=== PATIENT | female | born 1995 | race African-American/Black ===

== ENCOUNTER 2017-09-22 15:22 | Emergency (ER) | payer OTHER ==
[2017-09-22 15:31] VITALS: BP 131/82
[2017-09-22] MEDS ORDERED: IBUPROFEN 800 MG TABLET PO ONE (16:14)
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
== END 2017-09-22 16:21 | disposition home or self-care (01) ==
LOC: ER 15:22
DX: S30.0XXA Contusion of lower back and pelvis, initial encounter (principal); M54.6 Pain in thoracic spine; M54.5 Low back pain; M79.1 Myalgia; R51 Headache; F17.210 Nicotine dependence, cigarettes, uncomplicated; V89.2XXA Person injured in unspecified motor-vehicle accident, traffic, initial encounter
CPT/HCPCS: 99283

== ENCOUNTER 2019-03-29 11:04 | Emergency (ER) | payer SELFPAY ==
--- NOTE | 2019-03-29 11:17 | ER Document Report ---
ED Medical Screen (RME) - General Chief Complaint: Abscess Stated Complaint: POSSIBLE CYST Time Seen by Provider: 03/29/19 11:13 Mode of Arrival: Ambulatory Information source: Patient Notes: Patient presents to the emergency department with abscess to her left axilla. Patient reports for the past week. She reports she sometimes gets them after her menstrual cycle and when she shaves. She denies history of MRSA. Reports she is been here before to have him lanced in the past x1. No other symptoms such as fever vomiting diarrhea. I have greeted and performed a rapid initial assessment of this patient. A comprehensive ED assessment and evaluation of the patient, analysis of test results and completion of the medical decision making process will be conducted by additional ED providers. Dictation of this chart was performed using voice recognition software; therefore, there may be some unintended grammatical errors. TRAVEL OUTSIDE OF THE [place] IN LAST 30 DAYS: No - Related Data Allergies/Adverse Reactions: No Known Allergies Allergy (Unverified 11/21/14 18:16) Past Medical History Renal/ Medical History: Denies: Hx Peritoneal Dialysis Physical Exam - Vital signs Vitals: Temp Pulse Resp BP Pulse Ox 99.4 F 106 H 18 121/71 99 03/29/19 11:10 03/29/19 11:10 03/29/19 11:10 03/29/19 11:10 03/29/19 11:10 Course - Vital Signs Vital signs: Temp Pulse Resp BP Pulse Ox 99.4 F 106 H 18 121/71 99 03/29/19 11:10 03/29/19 11:10 03/29/19 11:10 03/29/19 11:10 03/29/19 11:10
[2019-03-29] MEDS ORDERED: LIDOCAINE 1% INJ-PF (10 MG/ML) 30 ML SDV INJ ONE (12:43)
[2019-03-29] MEDS ORDERED: ONDANSETRON 4 MG TAB.RAPDIS PO ONE (12:43)
[2019-03-29] MEDS ORDERED: OXYCODONE-ACETAMINOPHEN 5-325 MG TABLET PO ONE (12:43)
[2019-03-29] MEDS ORDERED: DOXYCYCLINE HYCLATE 100 MG TABLET PO ONE (14:24)
[2019-03-29] MEDS ORDERED: HYDROCODONE/ACETAMINOPHEN 5-325 MG (6 TAB/ER DISP) PO PRN (14:34)
--- NOTE | 2019-03-29 14:34 | ER Document Report ---
ED General - General Chief Complaint: Abscess Stated Complaint: POSSIBLE CYST Time Seen by Provider: 03/29/19 11:13 Mode of Arrival: Ambulatory TRAVEL OUTSIDE OF THE [place] IN LAST 30 DAYS: No - HPI Notes: Patient is a 23-year-old female who presents emergency department for evaluation of an abscess in the left axilla. She states she gets it whenever she shaves her underarms. She states she has never had a history of MRSA. She denies any fevers or chills. No nausea or vomiting. She has pain that is worsened by movement of the arm. Nothing seems to make it better. She has never consulted with a surgeon, has no insurance at this time. - Related Data Allergies/Adverse Reactions: No Known Allergies Allergy (Unverified 11/21/14 18:16) Past Medical History - General Information source: Patient - Social History Smoking Status: Never Smoker Drug Abuse: None Family History: Arthritis, CAD, CVA, DM, Hyperlipidemia, Hypertension. denies: COPD, Malignancy, Thyroid Disfunction Patient has suicidal ideation: No Patient has homicidal ideation: No Renal/ Medical History: Denies: Hx Peritoneal Dialysis Skin Medical History: Reports Other - Multiple abscesses Review of Systems - Review of Systems Constitutional: No symptoms reported EENT: No symptoms reported Cardiovascular: No symptoms reported Respiratory: No symptoms reported Gastrointestinal: No symptoms reported Female Genitourinary: No symptoms reported Musculoskeletal: No symptoms reported Skin: See HPI Neurological/Psychological: No symptoms reported Physical Exam - Vital signs Vitals: Temp Pulse Resp BP Pulse Ox 99.4 F 106 H 18 121/71 99 03/29/19 11:10 03/29/19 11:10 03/29/19 11:10 03/29/19 11:10 03/29/19 11:10 - Notes Notes: 23-year-old female who appears her stated age in no acute distress. Head is normocephalic and atraumatic. Pupils are equal round, reactive to light. Oral mucosa is moist. Heart is regular rate and rhythm, lungs clear station bilaterally. Examination of left axilla yields an approximate 6 cm indurated area with a 2 cm central area that is fluctuant. No surrounding lymphadenopathy that I am able to palpate. Otherwise skin is warm and dry. Patient is awake and alert, cooperative with examiner, no focal deficits neurologically. Course - Re-evaluation Re-evalutation: 03/29/19 14:31 Patient presents emergency department for evaluation. Decision was made to incise and drain this abscess. Questions were sought and answered. The procedure was explained in great detail. The patient tolerated it well. I did obtain cultures. She has no old wound cultures here. I did, given the extent of the purulence that was obtained, decide to start the patient on antibiotics. [facility] will refer [facility] to [facility] as she does not currently have insurance. She is given post I&D instructions, is told to return to the ED with worsening or new concerning symptoms of any sort. - Vital Signs Vital signs: Temp Pulse Resp BP Pulse Ox 99.4 F 106 H 18 121/71 99 03/29/19 11:10 03/29/19 11:10 03/29/19 11:10 03/29/19 11:10 03/29/19 11:10 Procedures - Incision and Drainage Left Arm Time completed: 14:01 Type: Simple Anesthetic type: 1% Lidocaine mL's of anesthetic: 4 Blade size: 11 I&D procedure: Betadine prep applied Incision Method: Incision made by scalpel Amount/type of drainage: Proximal only 25 cc of foul smelling purulent drainage Notes: 03/29/19 14:33 The area was prepped and draped in usual sterile fashion. It was anesthetized with approximately 4 mL's of 1% lidocaine. Once adequate anesthesia was achieved, an 11 blade scalpel was used to incise an area of about 1 cm to the area of maximum fluctuance. A large amount of purulent material was obtained. The wound was probed, septations opened, and further purulence was obtained. Culture was obtained. The abscess cavity was irrigated with approximately 60 cc of normal saline. The patient tolerated this all well. The area was cleansed thoroughly, dressed and antibiotic ointment and bulky dressing. Discharge - Discharge Clinical Impression: Abscess of left axilla Condition: Stable Disposition: HOME, SELF-CARE Instructions: Abscess ([facility]), Post Incision and Drainage Additional Instructions: Follow incision and drainage instructions as given. Keep wound clean with soap and water. Take antibiotic as prescribed. Ibuprofen as needed for moderate pain, [place] for severe pain. Follow-up at [facility], or return to the ED with worsening or new concerning symptoms of any sort. Prescriptions: Doxycycline Hyclate 100 mg PO BID #9 capsule Referrals: [facility] [NO LOCAL MD] - Follow up as needed
[2019-03-29 14:59] VITALS: BP 117/61
== END 2019-03-29 15:08 | disposition home or self-care (01) ==
LOC: ER 11:04
DX: L02.412 Cutaneous abscess of left axilla (principal)
CPT/HCPCS: 99283; 87070; 87205; 87075; 87077; 87186; 10060; S0119; J3490